=== PATIENT | female | born 1950 | race Caucasian/White ===

== ENCOUNTER 2016-09-08 14:26 | Outpatient (CLI) | payer MEDICARE, MEDICAID | END 2016-09-08 14:27 | disposition home or self-care (01) | DX: M79.662 Pain in left lower leg (principal) ==

== ENCOUNTER 2016-09-11 10:17 | Outpatient (CLI) | payer MEDICARE, MEDICAID | END 2016-09-11 10:18 | disposition home or self-care (01) | DX: M51.16 Intervertebral disc disorders with radiculopathy, lumbar region (principal) ==